=== PATIENT | female | born 1940 | race Asian ===

== ENCOUNTER 2016-11-19 15:29 | Emergency (ER) | payer OTHER ==
[~2016-11-19] VITALS: Ht 154.9 cm; Wt 50.5 kg
[2016-11-19] MEDS ORDERED: ACET-66 PO (15:35)
[2016-11-19] MEDS ORDERED: MULT-248 PO (15:35)
[2016-11-19] MEDS ORDERED: KETOROLAC TROMETHAMINE 60 MG/2 ML VIAL IM ONE (16:00)
[2016-11-19] MEDS ORDERED: HYDROCODONE/ACETAMINOPHEN 5-325 MG TABLET PO ONE (16:00)
[2016-11-19 16:29] LABS: APPEARANCE,URINE CLOUDY (CLEAR); GLUCOSE, URINE (UA) 500 mg/dL (NEGATIVE); KETONES,URINE NEGATIVE (NEGATIVE); OCCULT BLOOD,URINE NEGATIVE (NEGATIVE); PROTEIN,URINE NEGATIVE (NEGATIVE)
[2016-11-19 16:36] LABS: ADD UA MICROSCOPIC YES; LEUKOCYTE ESTERASE ,URINE SMALL (NEGATIVE); RBC,URINE 0-2 /HPF (0-2)
[2016-11-19 16:37] LABS: SQUAMOUS EPITHELIAL CELL,UR Moderate /LPF (None Seen)
[2016-11-19 17:12] LABS: GLUCOSE,POINT OF CARE 255 MG/DL (70-110)
[2016-11-19 17:41] LABS: ANION GAP 9 mmol/L (8-16); CALCIUM, TOTAL 9.1 mg/dL (8.8-10.5); CARBON DIOXIDE 27 mmol/L (22-29); CHLORIDE 94 mmol/L (98-107); CREATININE 0.86 mg/dL (0.60-1.30); GLOMERULAR FILTR. RATE CALC > 60 mL/min (>60); POTASSIUM 4.7 mmol/L (3.5-5.1); SODIUM SERUM 130 mmol/L (136-145); UREA NITROGEN, BLOOD 8 mg/dL (7-18)
[2016-11-19 17:47] LABS: ALANINE AMINOTRANSFERASE 15 U/L (12-78); ALBUMIN 3.5 g/dL (3.4-5.0); ASPARTATE AMINOTRANSFERASE 14 U/L (15-37); BILIRUBIN,TOTAL 0.4 mg/dL (0.1-1.0); TOTAL PROTEIN, SERUM 7.6 g/dL (6.4-8.2)
[2016-11-19 19:19] VITALS: BP 135/85
== END 2016-11-19 19:19 | disposition home or self-care (01) ==
LOC: EMS 15:31
DX: S22.089A Unspecified fracture of T11-T12 vertebra, initial encounter for closed fracture (principal); N39.0 Urinary tract infection, site not specified; M54.5 Low back pain; W18.39XA Other fall on same level, initial encounter; Y93.E8 Activity, other personal hygiene; Y92.89 Other specified places as the place of occurrence of the external cause; Y99.9 Unspecified external cause status
CPT/HCPCS: 36415; 72131; 72100; 80053; 81001; 82962; 87077; 87086; 87186; 96372; 99285; J1885

== ENCOUNTER 2020-10-26 12:20 | Emergency (ER) | payer MEDICARE ==
[~2020-10-26] VITALS: Ht 152.4 cm; Wt 54.5 kg
[~2020-10-26 12:20] MED LIST: ACET-3385 PO; CIPR250T6 PO; METF-960 PO; MULT-248 PO
[2020-10-26 13:40] LABS: BASOPHILS % (AUTO) 1.3 % (0.0-2.0); EOSINOPHILS % (AUTO) 5.5 % (1.0-6.0); HEMATOCRIT 46.1 % (36-46); HEMOGLOBIN 15.2 g/dL (12.0-16.0); LYMPHOCYTES # (AUTO) 3.8 K/uL (1.0-4.8); LYMPHOCYTES % (AUTO) 39.4 % (22.0-44.0); MEAN CORPUSCULAR HEMOGLOBIN 29.5 pg (26.0-34.0); MEAN CORPUSCULAR VOLUME 89 fL (80-100); MONOCYTES # (AUTO) 0.6 K/uL (0.1-1.0); MONOCYTES % (AUTO) 6.4 % (2.0-9.0); NEUTROPHILS # (AUTO) 4.6 K/uL (1.8-7.7); NEUTROPHILS % (AUTO) 47.4 % (40.0-70.0); PLATELET COUNT (AUTO) 290 K/uL (150-450); RED BLOOD CELL COUNT(AUTO) 5.16 MIL/uL (4.00-5.20); RED CELL DISTRIBUTION WIDTH 13.3 % (11.5-14.5)
[2020-10-26 14:11] LABS: ANION GAP 10 mmol/L (8-16); CARBON DIOXIDE 26 mmol/L (22-29); CHLORIDE 91 mmol/L (98-107); GLOMERULAR FILTR. RATE CALC 60 mL/min (>60); GLUCOSE,RANDOM 399 mg/dL (70-110); POTASSIUM 4.2 mmol/L (3.5-5.1); SODIUM SERUM 127 mmol/L (136-145); UREA NITROGEN, BLOOD 28 mg/dL (7-18)
[2020-10-26 14:16] VITALS: BP 151/88
[2020-10-26 14:21] LABS: ALANINE AMINOTRANSFERASE 15 U/L (12-78); ALBUMIN 3.9 g/dL (3.4-5.0); ALKALINE PHOSPHATASE 67 U/L (46-116); ASPARTATE AMINOTRANSFERASE 13 U/L (15-37); BILIRUBIN,TOTAL 0.5 mg/dL (0.1-1.0); TOTAL PROTEIN, SERUM 8.9 g/dL (6.4-8.2)
[2020-10-26 14:39] LABS: ACETONE,BLOOD TRACE (NEGATIVE)
== END 2020-10-26 14:42 | disposition home or self-care (01) ==
LOC: EMS 13:01
DX: E11.65 Type 2 diabetes mellitus with hyperglycemia (principal); Z79.4 Long term (current) use of insulin
CPT/HCPCS: 80053; 82009; 82962; 85025; 99283

== ENCOUNTER 2020-12-01 11:52 | Inpatient (IN) | payer MEDICARE ==
[~2020-12-01] VITALS: Ht 157.5 cm; Wt 59.4 kg
[~2020-12-01 11:52] MED LIST changes: -CIPR250T6 PO; -METF-960 PO
[2020-12-01] MEDS ORDERED: ROCURONIUM BROMIDE 10 MG/ML 5 ML VIAL IVP ONE (12:00)
[2020-12-01] MEDS ORDERED: PROPOFOL 1% 20 ML VIAL IVP ONE (12:00)
[2020-12-01] MEDS ORDERED: KETOROLAC TROMETHAMINE 60 MG/2 ML VIAL IM ONE (12:00)
[2020-12-01] MEDS ORDERED: ONDANSETRON HCL 4 MG/2 ML VIAL IVP ONE ×2 (12:00→12:15)
[2020-12-01] MEDS ORDERED: METOPROLOL TARTRATE 5 MG/5 ML VIAL IVP ONE (12:00)
[2020-12-01] MEDS ORDERED: FentaNYL CITRATE PF 100 MCG/2 ML VIAL IVP ONE (12:00)
[2020-12-01] MEDS ORDERED: DEXAMETHASONE SOD PHOS 4 MG/ML VIAL IVP ONE (12:00)
[2020-12-01] MEDS ORDERED: LIDOCAINE/PF 2% 5 ML VIAL IM ONE (12:00)
[2020-12-01] MEDS ORDERED: MORPHINE SULFATE 4 MG/ML SYRINGE IVP ONE (12:15)
[2020-12-01] MEDS ORDERED: SODIUM CHLORIDE 0.9% 1,000 ML IV ONE (14:00)
[2020-12-01] MEDS ORDERED: ONDANSETRON HCL 4 MG/2 ML VIAL IVP PRN (14:00)
[2020-12-01] MEDS ORDERED: DEXTROSE 50%-WATER 25 GM/50 ML SYRINGE IVP PRN (14:00)
[2020-12-01 14:09] LABS: ANION GAP 15 mmol/L (8-16); BASOPHILS % (AUTO) 0.4 % (0.0-2.0); CALCIUM, TOTAL 8.8 mg/dL (8.8-10.5); CARBON DIOXIDE 21 mmol/L (22-29); CHLORIDE 92 mmol/L (98-107); CREATININE 0.72 mg/dL (0.60-1.30); EOSINOPHILS % (AUTO) 0.1 % (1.0-6.0); GLUCOSE,RANDOM 221 mg/dL (70-110); HEMATOCRIT 38.8 % (36-46); HEMOGLOBIN 12.8 g/dL (12.0-16.0); LYMPHOCYTES # (AUTO) 1.1 K/uL (1.0-4.8); LYMPHOCYTES % (AUTO) 7.9 % (22.0-44.0); MEAN CORPUSCULAR HEMOGLOBIN 29.9 pg (26.0-34.0); MEAN CORPUSCULAR HGB CONC 32.9 G/dL (31.0-37.0); MEAN CORPUSCULAR VOLUME 91 fL (80-100); MONOCYTES # (AUTO) 0.8 K/uL (0.1-1.0); MONOCYTES % (AUTO) 5.5 % (2.0-9.0); PLATELET COUNT (AUTO) 321 K/uL (150-450); POTASSIUM 3.9 mmol/L (3.5-5.1); RED BLOOD CELL COUNT(AUTO) 4.28 MIL/uL (4.00-5.20); RED CELL DISTRIBUTION WIDTH 13.4 % (11.5-14.5); SODIUM SERUM 128 mmol/L (136-145); UREA NITROGEN, BLOOD 22 mg/dL (7-18)
[2020-12-01 14:10] LABS: GLOMERULAR FILTR. RATE CALC > 60 mL/min (>60)
[2020-12-01 14:11] LABS: NEUTROPHILS % (AUTO) 86.1 % (40.0-70.0)
[2020-12-01 14:15] LABS: ALANINE AMINOTRANSFERASE 21 U/L (12-78); ALBUMIN 3.3 g/dL (3.4-5.0); ALKALINE PHOSPHATASE 64 U/L (46-116); ASPARTATE AMINOTRANSFERASE 22 U/L (15-37); BILIRUBIN,TOTAL 0.8 mg/dL (0.1-1.0); TOTAL PROTEIN, SERUM 8.5 g/dL (6.4-8.2)
[2020-12-01 14:20] LABS: INR 0.9 (0.9-1.1); PROTHROMBIN TIME 9.9 SEC (9.4-11.6)
[2020-12-01] MEDS ORDERED: BUPIVACAINE LIPOSOME/PF 1.3%-13.3MG/ML SUSPENSION 20 ML VIAL INJ ONE (14:45)
[2020-12-01 14:46] LABS: COVID AG,FIA SOURCE NASOPHARYNGEAL
[2020-12-01] MEDS ORDERED: SODIUM CHLORIDE 0.9% 500 ML IV ONE (15:00)
[2020-12-01 17:44] VITALS: BP 138/88
[2020-12-01] MEDS ORDERED: SODIUM CHLORIDE 0.9% 1,000 ML ONE (19:22)
[2020-12-01] MEDS ORDERED: HYDROmorphone 2 MG/ML VIAL IVP PRN (19:30)
[2020-12-01] MEDS ORDERED: MEPERIDINE-PF 25 MG/ML VIAL IVP PRN (19:30)
[2020-12-01] MEDS ORDERED: FentaNYL CITRATE PF 100 MCG/2 ML VIAL IVP PRN (19:30)
[2020-12-01] MEDS ORDERED: BUPIVACAINE HCL/PF 0.25% 30 ML VIAL ONE (19:38)
[2020-12-01] MEDS ORDERED: SUGAMMADEX SODIUM 200 MG/2 ML VIAL IVP ONE (20:47)
[2020-12-01 22:00] VITALS: BP 130/70
[2020-12-01] MEDS: DOCUSATE SODIUM 100 MG CAPSULE PO SCH (23:05)
[2020-12-01] MEDS: CeFAZolin 1 GM/DEXTROSE 50 ML IV SCH (23:05)
[2020-12-01] MEDS: OXYGEN THERAPY IH SCH (23:05)
[2020-12-01] MEDS: INSULIN LISPRO 100 UNITS/ML SQ PRN (23:12)
[2020-12-01 23:46] VITALS: BP 126/64
[2020-12-01 23:57] LABS: GLUCOMETER DEV NAME(LOC) 6N.1; GLUCOSE,POINT OF CARE 181 MG/DL (70-110)
[2020-12-02] MEDS: ACETAMINOPHEN 325 MG TABLET PO PRN ×2 (02:37→16:44)
[2020-12-02 02:56] LABS: GLUCOMETER DEV NAME(LOC) 5N.1C; GLUCOSE,POINT OF CARE 255 MG/DL (70-110)
[2020-12-02 04:09] VITALS: BP 110/50
[2020-12-02] MEDS: INSULIN LISPRO 100 UNITS/ML SQ PRN ×4 (05:58→21:26)
[2020-12-02] MEDS: CeFAZolin 1 GM/DEXTROSE 50 ML IV SCH ×2 (05:59→14:17)
[2020-12-02 06:17] LABS: GLUCOMETER DEV NAME(LOC) 5N.3; GLUCOSE,POINT OF CARE 285 MG/DL (70-110)
[2020-12-02 06:30] LABS: BASOPHILS % (AUTO) 0.1 % (0.0-2.0); EOSINOPHILS % (AUTO) 0 % (1.0-6.0); HEMATOCRIT 31.4 % (36-46); HEMOGLOBIN 10.5 g/dL (12.0-16.0); LYMPHOCYTES # (AUTO) 1.2 K/uL (1.0-4.8); LYMPHOCYTES % (AUTO) 8.9 % (22.0-44.0); MEAN CORPUSCULAR HEMOGLOBIN 30.3 pg (26.0-34.0); MEAN CORPUSCULAR HGB CONC 33.4 G/dL (31.0-37.0); MEAN CORPUSCULAR VOLUME 91 fL (80-100); MONOCYTES # (AUTO) 0.6 K/uL (0.1-1.0); PLATELET COUNT (AUTO) 249 K/uL (150-450); RED BLOOD CELL COUNT(AUTO) 3.45 MIL/uL (4.00-5.20); RED CELL DISTRIBUTION WIDTH 13.8 % (11.5-14.5)
[2020-12-02 06:46] LABS: ANION GAP 12 mmol/L (8-16); CALCIUM, TOTAL 7.7 mg/dL (8.8-10.5); CARBON DIOXIDE 22 mmol/L (22-29); CHLORIDE 96 mmol/L (98-107); CREATININE 0.77 mg/dL (0.60-1.30); GLUCOSE,RANDOM 273 mg/dL (70-110); POTASSIUM 4.7 mmol/L (3.5-5.1); SODIUM SERUM 130 mmol/L (136-145); UREA NITROGEN, BLOOD 21 mg/dL (7-18)
[2020-12-02 06:51] LABS: GLOMERULAR FILTR. RATE CALC > 60 mL/min (>60)
[2020-12-02 07:54] VITALS: BP 101/60
[2020-12-02] MEDS: OXYGEN THERAPY IH SCH ×2 (08:00→20:00)
[2020-12-02] MEDS: FAMOTIDINE 20 MG TABLET PO SCH (09:09)
[2020-12-02] MEDS: DOCUSATE SODIUM 100 MG CAPSULE PO SCH ×2 (09:09→21:17)
[2020-12-02] MEDS: CALCIUM CIT/VITAMIN D3 200 MG-250 UNITS TABLET PO SCH ×2 (11:10→21:17)
[2020-12-02 12:10] VITALS: BP 108/55
[2020-12-02] MEDS ORDERED: SODIUM CHLORIDE 0.9% 500 ML IV ONE (14:19)
[2020-12-02 14:25] LABS: APPEARANCE,URINE TURBID (CLEAR); BILIRUBIN,URINE NEGATIVE (NEGATIVE); GLUCOSE, URINE (UA) 500 mg/dL (NEGATIVE); KETONES,URINE NEGATIVE (NEGATIVE); LEUKOCYTE ESTERASE ,URINE LARGE (NEGATIVE); NITRATE,URINE POSITIVE (NEGATIVE); OCCULT BLOOD,URINE LARGE (NEGATIVE); PROTEIN,URINE POS 1+ (NEGATIVE); UROBILINOGEN,URINE 0.2 mg/dL (<=1.0)
[2020-12-02 14:36] LABS: BACTERIA,URINE Many /HPF (None Seen); SQUAMOUS EPITHELIAL CELL,UR Rare /LPF (None Seen); WBC,URINE >100 /HPF (0-5)
[2020-12-02 15:24] VITALS: BP 120/59
[2020-12-02] MEDS ORDERED: *CLINICAL-RX DOSING [ENTER DRUG IN COMMENTS] CLINICAL ONE (15:30)
[2020-12-02] MEDS: MetFORMIN HCL 500 MG TABLET PO SCH (17:52)
[2020-12-02] MEDS: MORPHINE SULFATE 2 MG/ML SYRINGE IVP PRN ×2 (18:12→23:48)
[2020-12-02 19:51] VITALS: BP 120/60
[2020-12-02] MEDS: ENOXAPARIN SODIUM 30 MG/0.3 ML PF SYRINGE SQ SCH (21:19)
[2020-12-02 22:19] LABS: GLUCOMETER DEV NAME(LOC) 5N.1C; GLUCOSE,POINT OF CARE 176 MG/DL (70-110)
[2020-12-02 22:19] LABS: GLUCOMETER DEV NAME(LOC) 5N.1C; GLUCOSE,POINT OF CARE 201 MG/DL (70-110)
[2020-12-02 23:42] VITALS: BP 126/55
[2020-12-03] VITALS (7 sets, daily range): BP systolic 129–144; BP diastolic 60–91
[2020-12-03] MEDS: CeFAZolin 1 GM/DEXTROSE 50 ML IV SCH ×2 (01:23→13:40)
[2020-12-03 05:14] LABS: GLUCOMETER DEV NAME(LOC) 5N.3; GLUCOSE,POINT OF CARE 222 MG/DL (70-110)
[2020-12-03] MEDS: MORPHINE SULFATE 2 MG/ML SYRINGE IVP PRN ×2 (06:03→09:34)
[2020-12-03] MEDS: INSULIN LISPRO 100 UNITS/ML SQ PRN ×4 (06:13→20:23)
[2020-12-03 06:42] LABS: GLUCOMETER DEV NAME(LOC) 5N.1C; GLUCOSE,POINT OF CARE 210 MG/DL (70-110)
[2020-12-03] MEDS: OXYGEN THERAPY IH SCH ×2 (08:00→20:56)
[2020-12-03] MEDS: FAMOTIDINE 20 MG TABLET PO SCH (08:37)
[2020-12-03] MEDS: DOCUSATE SODIUM 100 MG CAPSULE PO SCH ×2 (08:37→20:21)
[2020-12-03] MEDS: MetFORMIN HCL 500 MG TABLET PO SCH ×2 (08:37→18:10)
[2020-12-03] MEDS: ENOXAPARIN SODIUM 30 MG/0.3 ML PF SYRINGE SQ SCH (08:37)
[2020-12-03] MEDS: CALCIUM CIT/VITAMIN D3 200 MG-250 UNITS TABLET PO SCH ×2 (08:39→20:21)
[2020-12-03 12:00] LABS: GLUCOMETER DEV NAME(LOC) 5N.1C; GLUCOSE,POINT OF CARE 211 MG/DL (70-110)
[2020-12-03] MEDS: BENZONATATE 100 MG CAPSULE PO PRN (13:58)
[2020-12-03 17:44] LABS: GLUCOMETER DEV NAME(LOC) 5N.3; GLUCOSE,POINT OF CARE 203 MG/DL (70-110)
[2020-12-04] VITALS (7 sets, daily range): BP systolic 112–146; BP diastolic 58–78
[2020-12-04] MEDS: CeFAZolin 1 GM/DEXTROSE 50 ML IV SCH ×2 (01:22→13:26)
[2020-12-04] MEDS: INSULIN LISPRO 100 UNITS/ML SQ PRN ×4 (05:56→21:34)
[2020-12-04] MEDS: HYDROCODONE/ACETAMINOPHEN 5-325 MG TABLET PO PRN ×3 (05:57→21:20)
[2020-12-04] MEDS: BENZONATATE 100 MG CAPSULE PO PRN ×2 (06:03→14:53)
[2020-12-04] MEDS: CALCIUM CIT/VITAMIN D3 200 MG-250 UNITS TABLET PO SCH ×2 (09:36→21:20)
[2020-12-04] MEDS: MetFORMIN HCL 500 MG TABLET PO SCH (09:37)
[2020-12-04] MEDS: DOCUSATE SODIUM 100 MG CAPSULE PO SCH ×2 (09:37→21:20)
[2020-12-04] MEDS: FAMOTIDINE 20 MG TABLET PO SCH (09:37)
[2020-12-04] MEDS: OXYGEN THERAPY IH SCH ×2 (09:37→21:20)
[2020-12-04] MEDS: ENOXAPARIN SODIUM 30 MG/0.3 ML PF SYRINGE SQ SCH (09:39)
[2020-12-04] MEDS: ACETAMINOPHEN 325 MG TABLET PO PRN (10:34)
[2020-12-04 11:29] LABS: GLUCOMETER DEV NAME(LOC) 5N.1C; GLUCOSE,POINT OF CARE 219 MG/DL (70-110)
[2020-12-04 12:25] LABS: GLUCOMETER DEV NAME(LOC) 5S.1; GLUCOSE,POINT OF CARE 202 MG/DL (70-110)
[2020-12-04 12:30] LABS: GLUCOMETER DEV NAME(LOC) 5N.3; GLUCOSE,POINT OF CARE 209 MG/DL (70-110)
[2020-12-04] MEDS ORDERED: SODIUM CHLORIDE 0.9% 250 ML IV ONE (13:23)
[2020-12-04] MEDS: MetFORMIN HCL 850 MG TABLET PO SCH (17:57)
[2020-12-04] MEDS: MORPHINE SULFATE 2 MG/ML SYRINGE IVP PRN (18:19)
[2020-12-04 18:22] LABS: GLUCOMETER DEV NAME(LOC) 5S.1; GLUCOSE,POINT OF CARE 167 MG/DL (70-110)
[2020-12-05] MEDS: CeFAZolin 1 GM/DEXTROSE 50 ML IV SCH ×2 (02:10→14:04)
[2020-12-05] MEDS: MORPHINE SULFATE 2 MG/ML SYRINGE IVP PRN ×3 (02:21→18:05)
[2020-12-05 04:40] VITALS: BP 121/70
[2020-12-05] MEDS: HYDROCODONE/ACETAMINOPHEN 5-325 MG TABLET PO PRN ×3 (05:59→20:17)
[2020-12-05] MEDS: INSULIN LISPRO 100 UNITS/ML SQ PRN ×3 (06:16→17:26)
[2020-12-05 06:48] LABS: BASOPHILS % (AUTO) 1.4 % (0.0-2.0); EOSINOPHILS % (AUTO) 11.5 % (1.0-6.0); HEMATOCRIT 27.9 % (36-46); HEMOGLOBIN 9.4 g/dL (12.0-16.0); LYMPHOCYTES # (AUTO) 2.3 K/uL (1.0-4.8); LYMPHOCYTES % (AUTO) 21.8 % (22.0-44.0); MEAN CORPUSCULAR HEMOGLOBIN 30.8 pg (26.0-34.0); MEAN CORPUSCULAR HGB CONC 33.9 G/dL (31.0-37.0); MEAN CORPUSCULAR VOLUME 91 fL (80-100); MONOCYTES % (AUTO) 9.2 % (2.0-9.0); NEUTROPHILS # (AUTO) 5.9 K/uL (1.8-7.7); NEUTROPHILS % (AUTO) 56.1 % (40.0-70.0); PLATELET COUNT (AUTO) 270 K/uL (150-450); RED BLOOD CELL COUNT(AUTO) 3.07 MIL/uL (4.00-5.20); RED CELL DISTRIBUTION WIDTH 13.8 % (11.5-14.5)
[2020-12-05 06:59] LABS: ANION GAP 8 mmol/L (8-16); CALCIUM, TOTAL 8.5 mg/dL (8.8-10.5); CARBON DIOXIDE 26 mmol/L (22-29); CHLORIDE 94 mmol/L (98-107); CREATININE 0.45 mg/dL (0.60-1.30); GLUCOSE,RANDOM 159 mg/dL (70-110); POTASSIUM 4.4 mmol/L (3.5-5.1); SODIUM SERUM 128 mmol/L (136-145); UREA NITROGEN, BLOOD 10 mg/dL (7-18)
[2020-12-05 07:03] LABS: GLOMERULAR FILTR. RATE CALC > 60 mL/min (>60)
[2020-12-05 07:14] VITALS: BP 100/53
[2020-12-05] MEDS: OXYGEN THERAPY IH SCH ×2 (09:18→20:23)
[2020-12-05] MEDS: DOCUSATE SODIUM 100 MG CAPSULE PO SCH ×2 (09:19→20:17)
[2020-12-05] MEDS: MetFORMIN HCL 850 MG TABLET PO SCH ×2 (09:19→18:01)
[2020-12-05] MEDS: ENOXAPARIN SODIUM 30 MG/0.3 ML PF SYRINGE SQ SCH (09:19)
[2020-12-05] MEDS: FAMOTIDINE 20 MG TABLET PO SCH (09:19)
[2020-12-05] MEDS: CALCIUM CIT/VITAMIN D3 200 MG-250 UNITS TABLET PO SCH ×2 (09:19→20:17)
[2020-12-05 11:13] VITALS: BP 114/66
[2020-12-05 15:19] VITALS: BP 122/62
[2020-12-05 16:01] LABS: APPEARANCE,URINE CLEAR (CLEAR); BILIRUBIN,URINE NEGATIVE (NEGATIVE); GLUCOSE, URINE (UA) NEGATIVE (NEGATIVE); KETONES,URINE NEGATIVE (NEGATIVE); LEUKOCYTE ESTERASE ,URINE NEGATIVE (NEGATIVE); NITRATE,URINE NEGATIVE (NEGATIVE); OCCULT BLOOD,URINE MODERATE (NEGATIVE); PH,URINE 5.5 (5.0-8.0); PROTEIN,URINE NEGATIVE (NEGATIVE); UROBILINOGEN,URINE 0.2 mg/dL (<=1.0)
[2020-12-05 16:35] LABS: BACTERIA,URINE Rare /HPF (None Seen); SQUAMOUS EPITHELIAL CELL,UR Few /LPF (None Seen); WBC,URINE 0-2 /HPF (0-5); YEAST,URINE Moderate /HPF (None Seen)
[2020-12-05 19:53] VITALS: BP 133/60
[2020-12-06 00:13] VITALS: BP 127/59
[2020-12-06] MEDS: CeFAZolin 1 GM/DEXTROSE 50 ML IV SCH ×2 (02:00→14:47)
[2020-12-06 05:36] LABS: GLUCOMETER DEV NAME(LOC) 5N.1C; GLUCOSE,POINT OF CARE 138 MG/DL (70-110)
[2020-12-06 05:36] LABS: GLUCOMETER DEV NAME(LOC) 5N.1C; GLUCOSE,POINT OF CARE 155 MG/DL (70-110)
[2020-12-06 05:37] VITALS: BP 121/65
[2020-12-06] MEDS: HYDROCODONE/ACETAMINOPHEN 5-325 MG TABLET PO PRN ×2 (05:50→12:14)
[2020-12-06] MEDS: INSULIN LISPRO 100 UNITS/ML SQ PRN ×2 (05:55→12:15)
[2020-12-06 07:55] VITALS: BP 105/54
[2020-12-06 08:32] LABS: GLUCOMETER DEV NAME(LOC) 5N.3; GLUCOSE,POINT OF CARE 177 MG/DL (70-110)
[2020-12-06 08:32] LABS: GLUCOMETER DEV NAME(LOC) 5N.3; GLUCOSE,POINT OF CARE 180 MG/DL (70-110)
[2020-12-06 08:32] LABS: GLUCOMETER DEV NAME(LOC) 5N.3; GLUCOSE,POINT OF CARE 166 MG/DL (70-110)
[2020-12-06 08:45] LABS: GLUCOMETER DEV NAME(LOC) 5S.1; GLUCOSE,POINT OF CARE 160 MG/DL (70-110)
[2020-12-06] MEDS: FAMOTIDINE 20 MG TABLET PO SCH (09:29)
[2020-12-06] MEDS: ENOXAPARIN SODIUM 30 MG/0.3 ML PF SYRINGE SQ SCH (09:29)
[2020-12-06] MEDS: MetFORMIN HCL 850 MG TABLET PO SCH (09:29)
[2020-12-06] MEDS: DOCUSATE SODIUM 100 MG CAPSULE PO SCH (09:29)
[2020-12-06] MEDS: CALCIUM CIT/VITAMIN D3 200 MG-250 UNITS TABLET PO SCH (09:29)
[2020-12-06] MEDS: OXYGEN THERAPY IH SCH (09:34)
[2020-12-06] MEDS: BENZONATATE 100 MG CAPSULE PO PRN (11:05)
[2020-12-06] MEDS ORDERED: CALC-884 PO (11:11)
[2020-12-06] MEDS ORDERED: ENOX30DI5 SQ (11:12)
[2020-12-06] MEDS ORDERED: DOCU-270 PO (11:12)
[2020-12-06] MEDS ORDERED: FAMO20 PO (11:13)
[2020-12-06] MEDS ORDERED: METF-961 PO (11:13)
[2020-12-06] MEDS ORDERED: FLUCONAZOLE 150 MG TABLET PO ONE (11:15)
[2020-12-06] MEDS ORDERED: ACET-2247 PO (11:22)
[2020-12-06] MEDS ORDERED: BENZ-70 PO (11:23)
[2020-12-06] MEDS ORDERED: HYDR-4723 PO (11:24)
[2020-12-06] MEDS ORDERED: INSU100V SQ (11:25)
[2020-12-06 11:31] VITALS: BP 131/61
[2020-12-06 12:14] LABS: GLUCOMETER DEV NAME(LOC) 5N.1C; GLUCOSE,POINT OF CARE 168 MG/DL (70-110)
[2020-12-06 15:20] VITALS: BP 131/63
== END 2020-12-06 16:30 | DRG 480 ==
LOC: EMS 11:56 → 6N 15:02 → 5S 22:10
PROVIDERS: ADMIT Internal Medicine; ATTEND Internal Medicine
PROC: 0QS604Z Reposition Right Upper Femur with Internal Fixation Device, Open Approach (ICD-10-PCS; principal; 2020-12-01 20:30)
DX: M84.451A Pathological fracture, right femur, initial encounter for fracture (principal); E43 Unspecified severe protein-calorie malnutrition; N39.0 Urinary tract infection, site not specified; E87.1 Hypo-osmolality and hyponatremia; Z20.822 Contact with and (suspected) exposure to COVID-19; F03.90 Unspecified dementia, unspecified severity, without behavioral disturbance, psychotic disturbance, mood disturbance, and anxiety; E11.9 Type 2 diabetes mellitus without complications; J84.10 Pulmonary fibrosis, unspecified; M19.90 Unspecified osteoarthritis, unspecified site; R62.7 Adult failure to thrive; Z68.24 Body mass index [BMI] 24.0-24.9, adult; W18.39XA Other fall on same level, initial encounter; Y93.89 Activity, other specified; Y92.098 Other place in other non-institutional residence as the place of occurrence of the external cause; Y99.8 Other external cause status
CPT/HCPCS: 51702; 71045; 73502; 80048; 80053; 81001; 82962; 85025; 85610; 85730; 87081; 87086; 93005; 97116; 97163; 97530; 99285; A9575; C9290; G0238; J0690; J1100; J1650; J1885; J2270; J2405; J2704; J3010; J3490; J7030; J7040; J7050; 36415-L1; 36415-TC; C1716; Z7610

== ENCOUNTER 2022-05-15 11:39 | Inpatient (IN) | payer MEDICARE ==
[~2022-05-15] VITALS: Ht 157.5 cm; Wt 59.1 kg
[~2022-05-15 11:39] MED LIST changes: +ACET-2247 PO; -ACET-3385 PO; +BENZ-70 PO; +CALC-884 PO; +DOCU-385 PO; +ENOX30SY19 SQ; +FAMO20 PO; +HYDR-4723 PO; +INSU100V SQ; +METF-1185 PO; -MULT-248 PO
[2022-05-15] MEDS ORDERED: SODIUM CHLORIDE 0.9% 1,000 ML IV ONE ×2 (14:30→16:45)
[2022-05-15 14:51] LABS: COVID AG,FIA SOURCE NASOPHARYNGEAL
[2022-05-15 14:52] LABS: EOSINOPHILS % (AUTO) 4.2 % (1.0-6.0); HEMATOCRIT 38.8 % (36-46); LYMPHOCYTES # (AUTO) 1.7 K/uL (1.0-4.8); LYMPHOCYTES % (AUTO) 20.4 % (22.0-44.0); MEAN CORPUSCULAR HEMOGLOBIN 30.7 pg (26.0-34.0); MEAN CORPUSCULAR HGB CONC 33.5 G/dL (31.0-37.0); MEAN CORPUSCULAR VOLUME 92 fL (80-100); MONOCYTES # (AUTO) 0.7 K/uL (0.1-1.0); MONOCYTES % (AUTO) 8.6 % (2.0-9.0); NEUTROPHILS # (AUTO) 5.4 K/uL (1.8-7.7); NEUTROPHILS % (AUTO) 65.8 % (40.0-70.0); PLATELET COUNT (AUTO) 356 K/uL (150-450); RED BLOOD CELL COUNT(AUTO) 4.23 MIL/uL (4.00-5.20); RED CELL DISTRIBUTION WIDTH 13.6 % (11.5-14.5)
[2022-05-15 15:06] LABS: ANION GAP 8 mmol/L (8-16); CALCIUM, TOTAL 8.8 mg/dL (8.8-10.5); CARBON DIOXIDE 28 mmol/L (22-29); CHLORIDE 96 mmol/L (98-107); CREATININE 0.83 mg/dL (0.60-1.30); GLOMERULAR FILTR. RATE CALC > 60 mL/min (>60); GLUCOSE,RANDOM 120 mg/dL (70-110); POTASSIUM 4.1 mmol/L (3.5-5.1); SODIUM SERUM 132 mmol/L (136-145); UREA NITROGEN, BLOOD 25 mg/dL (7-18)
[2022-05-15 15:11] LABS: ALANINE AMINOTRANSFERASE 9 U/L (12-78); ALBUMIN 3.1 g/dL (3.4-5.0); ALKALINE PHOSPHATASE 79 U/L (46-116); ASPARTATE AMINOTRANSFERASE 16 U/L (15-37); BILIRUBIN,TOTAL 0.6 mg/dL (0.1-1.0); CREATINE KINASE, TOTAL ONLY 23 U/L (26-192); TOTAL PROTEIN, SERUM 8.4 g/dL (6.4-8.2)
[2022-05-15 15:13] LABS: B-TYPE NATRIURETIC PEPTIDE 142 pg/mL (0-100)
[2022-05-15 15:40] LABS: APPEARANCE,URINE HAZY (CLEAR); BILIRUBIN,URINE NEGATIVE (NEGATIVE); GLUCOSE, URINE (UA) NEGATIVE (NEGATIVE); LEUKOCYTE ESTERASE ,URINE LARGE (NEGATIVE); NITRATE,URINE POSITIVE (NEGATIVE); OCCULT BLOOD,URINE LARGE (NEGATIVE); PROTEIN,URINE 300-600,SEE CONFIRM mg/dL (NEGATIVE); SPECIFIC GRAVITIY, URINE 1.013 (1.003-1.030); UROBILINOGEN,URINE <=1.0 mg/dL (<=1.0)
[2022-05-15 16:00] LABS: SULFOSALICYLIC ACID,URINE 4+ (Negative)
[2022-05-15 16:01] LABS: BACTERIA,URINE Many /HPF (None Seen)
[2022-05-15 16:02] LABS: TRIPLE PHOSPHATE CRYSTAL,UR Moderate /LPF (None Seen)
[2022-05-15] MEDS ORDERED: CefTRIAXone 1 GM/DEXTROSE 50 ML IV ONE (16:30)
[2022-05-15] MEDS ORDERED: DEXTROSE 50%-WATER 25 GM/50 ML SYRINGE IVP PRN (16:45)
[2022-05-15] MEDS ORDERED: BISACODYL 10 MG RECTAL RECTAL SUPPOSITORY PR PRN (16:45)
[2022-05-15] MEDS ORDERED: ACETAMINOPHEN 325 MG TABLET PO PRN (16:45)
[2022-05-15] MEDS ORDERED: MAGNESIUM HYDROXIDE SUSPENSION 30 ML UDCUP PO PRN (16:45)
[2022-05-15] MEDS ORDERED: ONDANSETRON HCL 4 MG/2 ML VIAL IVP PRN (16:45)
[2022-05-15 21:48] VITALS: BP 199/90
[2022-05-15] MEDS: CALCIUM CIT/VITAMIN D3 200 MG-250 UNITS[6.25MCG] TABLET PO SCH (22:00)
[2022-05-15] MEDS: DOCUSATE SODIUM 100 MG CAPSULE PO SCH (22:00)
[2022-05-15] MEDS ORDERED: CloNIDine HCL 0.1 MG TABLET PO PRN (22:15)
[2022-05-15 22:36] LABS: GLUCOMETER DEV NAME(LOC) 6N.2B; GLUCOSE,POINT OF CARE 111 MG/DL (70-110)
[2022-05-15] MEDS: HEPARIN SODIUM,PORCINE 5,000 UNITS/ML VIAL SQ SCH (23:06)
[2022-05-16 05:16] VITALS: BP 148/70
[2022-05-16 06:31] LABS: GLUCOMETER DEV NAME(LOC) 6N.2B; GLUCOSE,POINT OF CARE 125 MG/DL (70-110)
[2022-05-16 08:00] VITALS: BP 149/69
[2022-05-16] MEDS: DOCUSATE SODIUM 100 MG CAPSULE PO SCH ×2 (08:47→20:32)
[2022-05-16] MEDS: MULTIVITAMINS WITH MINERALS, THERAPEUTIC TABLET PO SCH (08:48)
[2022-05-16] MEDS: HEPARIN SODIUM,PORCINE 5,000 UNITS/ML VIAL SQ SCH ×2 (08:48→20:32)
[2022-05-16] MEDS: CALCIUM CIT/VITAMIN D3 200 MG-250 UNITS[6.25MCG] TABLET PO SCH ×2 (08:48→20:28)
[2022-05-16] MEDS: FAMOTIDINE 20 MG TABLET PO SCH (08:48)
[2022-05-16] MEDS: SODIUM CHLORIDE 0.9% 1,000 ML IV SCH (15:10)
[2022-05-16] MEDS: CefTRIAXone 1 GM/DEXTROSE 50 ML IV SCH (15:10)
[2022-05-16 16:49] VITALS: BP 142/71
[2022-05-16 20:00] VITALS: BP 156/93
[2022-05-16 22:07] LABS: GLUCOMETER DEV NAME(LOC) 6N.2B; GLUCOSE,POINT OF CARE 175 MG/DL (70-110)
[2022-05-16 22:07] LABS: GLUCOMETER DEV NAME(LOC) 6N.2B; GLUCOSE,POINT OF CARE 132 MG/DL (70-110)
[2022-05-16 23:46] LABS: GLUCOMETER DEV NAME(LOC) 6N.1; GLUCOSE,POINT OF CARE 106 MG/DL (70-110)
[2022-05-17 04:00] VITALS: BP 158/79
[2022-05-17 07:16] LABS: MAGNESIUM 1.7 mg/dL (1.80-2.40); PHOSPHORUS 3.5 mg/dL (2.5-4.9)
[2022-05-17 08:16] VITALS: BP 153/68
[2022-05-17] MEDS: CALCIUM CIT/VITAMIN D3 200 MG-250 UNITS[6.25MCG] TABLET PO SCH (08:20)
[2022-05-17] MEDS: HEPARIN SODIUM,PORCINE 5,000 UNITS/ML VIAL SQ SCH (08:21)
[2022-05-17] MEDS: SODIUM CHLORIDE 0.9% 1,000 ML IV SCH (08:24)
[2022-05-17] MEDS ORDERED: AmLODIPine BESYLATE 5 MG TABLET PO SCH (10:30)
[2022-05-17] MEDS: DOCUSATE SODIUM 100 MG CAPSULE PO SCH (10:56)
[2022-05-17] MEDS: FAMOTIDINE 20 MG TABLET PO SCH (10:59)
[2022-05-17] MEDS: MULTIVITAMINS WITH MINERALS, THERAPEUTIC TABLET PO SCH (10:59)
[2022-05-17] MEDS: INSULIN LISPRO 100 UNITS/ML SQ PRN ×2 (11:43→17:14)
[2022-05-17 12:02] LABS: GLUCOMETER DEV NAME(LOC) 6N.2B; GLUCOSE,POINT OF CARE 116 MG/DL (70-110)
[2022-05-17] MEDS ORDERED: MAGNESIUM OXIDE 400 MG TABLET PO ONE (13:45)
[2022-05-17 14:52] LABS: GLUCOMETER DEV NAME(LOC) 6N.1; GLUCOSE,POINT OF CARE 130 MG/DL (70-110)
[2022-05-17] MEDS: CefTRIAXone 1 GM/DEXTROSE 50 ML IV SCH (15:14)
[2022-05-17 16:01] VITALS: BP 142/72
[2022-05-17 20:01] LABS: GLUCOMETER DEV NAME(LOC) 6N.2B; GLUCOSE,POINT OF CARE 145 MG/DL (70-110)
== END 2022-05-17 18:25 | DRG 91 ==
LOC: EMS 11:44 → AHU 16:40 → 6S 20:34
PROVIDERS: ADMIT Internal Medicine; ATTEND Internal Medicine
DX: G92.9 Unspecified toxic encephalopathy (principal); E43 Unspecified severe protein-calorie malnutrition; M48.54XA Collapsed vertebra, not elsewhere classified, thoracic region, initial encounter for fracture; N39.0 Urinary tract infection, site not specified; E87.1 Hypo-osmolality and hyponatremia; Q78.2 Osteopetrosis; J84.10 Pulmonary fibrosis, unspecified; E11.9 Type 2 diabetes mellitus without complications; F03.90 Unspecified dementia, unspecified severity, without behavioral disturbance, psychotic disturbance, mood disturbance, and anxiety; R62.7 Adult failure to thrive; Z20.822 Contact with and (suspected) exposure to COVID-19; R79.89 Other specified abnormal findings of blood chemistry; E86.9 Volume depletion, unspecified; I10 Essential (primary) hypertension; Z68.23 Body mass index [BMI] 23.0-23.9, adult; Z79.899 Other long term (current) drug therapy
CPT/HCPCS: 51701; 70450; 71045; 72100; 80053; 81001; 81002; 82550; 82962; 83735; 83880; 84100; 84484; 85025; 87086; 87186; 92610; 93005; 97162; 97530; 99285; J0696; J1644; J2405; J7030; Q9967; 36415-L1; 36415-TC

== ENCOUNTER 2022-06-16 23:23 | Inpatient (IN) | payer MEDICARE ==
[~2022-06-16] VITALS: Ht 154.9 cm; Wt 51.1 kg
[~2022-06-16 23:23] MED LIST changes: +BENZ-227 PO; -BENZ-70 PO
[2022-06-16] MEDS ORDERED: 0.9% SODIUM CHLORIDE 10 ML SYRINGE IVP PRN (23:30)
[2022-06-16] MEDS ORDERED: NITROGLYCERIN 2% (1 GM=INCH) OINTMENT PACKET TP ONE (23:30)
[2022-06-16] MEDS ORDERED: ALBUTEROL SULFATE 2.5 MG/0.5 ML NEB SOLUTION NEB ONE (23:45)
[2022-06-16] MEDS ORDERED: 0.9% SODIUM CHLORIDE 5 ML NEB SOLUTION NEB ONE (23:47)
[2022-06-17 00:18] LABS: COVID AG,FIA SOURCE NASAL SWAB
[2022-06-17] MEDS ORDERED: FUROSEMIDE 20 MG/2 ML VIAL IVP ONE (00:30)
[2022-06-17 00:36] LABS: BASOPHILS % (AUTO) 0.4 % (0.0-2.0); HEMATOCRIT 34.2 % (36-46); HEMOGLOBIN 11.6 g/dL (12.0-16.0); LYMPHOCYTES # (AUTO) 0.8 K/uL (1.0-4.8); LYMPHOCYTES % (AUTO) 6.2 % (22.0-44.0); MEAN CORPUSCULAR HEMOGLOBIN 31.7 pg (26.0-34.0); MEAN CORPUSCULAR HGB CONC 33.8 G/dL (31.0-37.0); MEAN CORPUSCULAR VOLUME 94 fL (80-100); MONOCYTES # (AUTO) 0.7 K/uL (0.1-1.0); MONOCYTES % (AUTO) 5.6 % (2.0-9.0); NEUTROPHILS # (AUTO) 10.9 K/uL (1.8-7.7); PLATELET COUNT (AUTO) 192 K/uL (150-450); RED BLOOD CELL COUNT(AUTO) 3.64 MIL/uL (4.00-5.20); RED CELL DISTRIBUTION WIDTH 14.4 % (11.5-14.5)
[2022-06-17 00:37] LABS: NEUTROPHILS % (AUTO) 86.8 % (40.0-70.0)
[2022-06-17 00:42] LABS: INFLUENZA TYPE A NEGATIVE FOR TYPE A (NEGATIVE); INFLUENZA TYPE B NEGATIVE FOR TYPE B (NEGATIVE)
[2022-06-17 00:46] LABS: ALANINE AMINOTRANSFERASE 15 U/L (12-78); ALKALINE PHOSPHATASE 66 U/L (46-116); ANION GAP 10 mmol/L (8-16); ASPARTATE AMINOTRANSFERASE 19 U/L (15-37); BILIRUBIN,TOTAL 0.7 mg/dL (0.1-1.0); CALCIUM, TOTAL 9.1 mg/dL (8.8-10.5); CARBON DIOXIDE 26 mmol/L (22-29); CHLORIDE 89 mmol/L (98-107); CREATININE 0.75 mg/dL (0.60-1.30); GLOMERULAR FILTR. RATE CALC > 60 mL/min (>60); GLUCOSE,RANDOM 111 mg/dL (70-110); POTASSIUM 3.9 mmol/L (3.5-5.1); SODIUM SERUM 125 mmol/L (136-145); TOTAL PROTEIN, SERUM 7.9 g/dL (6.4-8.2); UREA NITROGEN, BLOOD 19 mg/dL (7-18)
[2022-06-17 00:49] LABS: CREATINE KINASE, TOTAL ONLY 27 U/L (26-192)
[2022-06-17 00:52] LABS: LACTIC ACID 2.8 mmol/L (0.4-2.0)
[2022-06-17] MEDS ORDERED: CefTRIAXone 1 GM/DEXTROSE 50 ML IV ONE (01:00)
[2022-06-17 01:14] LABS: B-TYPE NATRIURETIC PEPTIDE 349 pg/mL (0-100)
[2022-06-17] MEDS ORDERED: ACETAMINOPHEN 650 MG/ISO-OSM 65 ML IV ONE (01:30)
[2022-06-17 01:45] LABS: APPEARANCE,URINE CLEAR (CLEAR); BILIRUBIN,URINE NEGATIVE (NEGATIVE); GLUCOSE, URINE (UA) NEGATIVE (NEGATIVE); KETONES,URINE NEGATIVE (NEGATIVE); LEUKOCYTE ESTERASE ,URINE SMALL (NEGATIVE); NITRATE,URINE NEGATIVE (NEGATIVE); OCCULT BLOOD,URINE TRACE (NEGATIVE); PROTEIN,URINE 100-200,SEE CONFIRM mg/dL (NEGATIVE); SPECIFIC GRAVITIY, URINE 1.013 (1.003-1.030); UROBILINOGEN,URINE <=1.0 mg/dL (<=1.0)
[2022-06-17 01:58] LABS: BACTERIA,URINE None Seen /HPF (None Seen); RBC,URINE 0-2 /HPF (0-2); SQUAMOUS EPITHELIAL CELL,UR None Seen /LPF (None Seen); SULFOSALICYLIC ACID,URINE 1+ (Negative)
[2022-06-17] MEDS ORDERED: ALBUTEROL SULFATE 2.5 MG/0.5 ML NEB SOLUTION NEB PRN ×2 (02:15→06:15)
[2022-06-17] MEDS ORDERED: ONDANSETRON HCL 4 MG/2 ML VIAL IVP PRN (02:15)
[2022-06-17] MEDS ORDERED: ACETAMINOPHEN 325 MG TABLET PO PRN (02:15)
[2022-06-17] MEDS ORDERED: IPRATROPIUM BROMIDE 0.5 MG/2.5 ML NEB SOLUTION NEB PRN (02:15)
[2022-06-17] MEDS: AZITHROMYCIN 500 MG/NS 250 ML IV SCH (02:22)
[2022-06-17] MEDS ORDERED: KETOROLAC TROMETHAMINE 15 MG/ML VIAL IVP PRN (05:30)
[2022-06-17] MEDS ORDERED: ALBUTEROL SULFATE 2.5 MG/0.5 ML NEB SOLUTION NEB ONE (05:30)
[2022-06-17] MEDS ORDERED: ACETAMINOPHEN 325 MG/ISO-OSM 32.5 ML IV ONE (05:30)
[2022-06-17] MEDS: MethylPREDNISolone SOD SUCC 125 MG/2 ML VIAL IVP SCH ×2 (05:45→10:11)
[2022-06-17] MEDS ORDERED: METHADONE PO (07:39)
[2022-06-17] MEDS: DOCUSATE SODIUM 100 MG CAPSULE PO SCH ×2 (08:04→19:28)
[2022-06-17] MEDS ORDERED: MEMA5TAB42 PO (08:07)
[2022-06-17] MEDS ORDERED: GLIP5TAB12 PO (08:07)
[2022-06-17] MEDS ORDERED: ATOR10TA69 PO (08:07)
[2022-06-17] MEDS ORDERED: PIOG45TA4 PO (08:07)
[2022-06-17 10:04] VITALS: BP 122/53
[2022-06-17 12:51] LABS: GLUCOMETER DEV NAME(LOC) 6S.1B; GLUCOSE,POINT OF CARE 177 MG/DL (70-110)
[2022-06-17 17:04] VITALS: BP 146/70
[2022-06-17] MEDS ORDERED: AMLO5TAB66 PO (17:04)
[2022-06-17] MEDS ORDERED: INSU100I40 SQ (17:04)
[2022-06-17 20:18] VITALS: BP 137/73
[2022-06-17] MEDS ORDERED: SODIUM CHLORIDE 0.9% 250 ML IV ONE (22:15)
[2022-06-17] MEDS ORDERED: SODIUM CHLORIDE 0.9% 500 ML IV ONE (22:19)
[2022-06-17] MEDS: CefTRIAXone 1 GM/DEXTROSE 50 ML IV SCH (23:56)
[2022-06-18] MEDS: AZITHROMYCIN 500 MG/NS 250 ML IV SCH (01:32)
[2022-06-18 04:31] VITALS: BP 134/61
[2022-06-18] MEDS: DOCUSATE SODIUM 100 MG CAPSULE PO SCH ×2 (07:20→21:00)
[2022-06-18 08:17] VITALS: BP 137/71
[2022-06-18] MEDS: MethylPREDNISolone SOD SUCC 125 MG/2 ML VIAL IVP SCH (08:23)
[2022-06-18 12:26] LABS: GLUCOMETER DEV NAME(LOC) 6S.1B; GLUCOSE,POINT OF CARE 134 MG/DL (70-110)
[2022-06-18] MEDS: DEXTROSE 5%-0.45% SODIUM CHL 1,000 ML IV SCH (12:42)
[2022-06-18 12:55] LABS: BASOPHILS % (AUTO) 0.4 % (0.0-2.0); EOSINOPHILS % (AUTO) 0.1 % (1.0-6.0); HEMATOCRIT 32.3 % (36-46); LYMPHOCYTES # (AUTO) 0.6 K/uL (1.0-4.8); MEAN CORPUSCULAR HEMOGLOBIN 31.8 pg (26.0-34.0); MEAN CORPUSCULAR VOLUME 93 fL (80-100); MONOCYTES # (AUTO) 0.3 K/uL (0.1-1.0); NEUTROPHILS # (AUTO) 8.7 K/uL (1.8-7.7); PLATELET COUNT (AUTO) 229 K/uL (150-450); RED BLOOD CELL COUNT(AUTO) 3.46 MIL/uL (4.00-5.20); RED CELL DISTRIBUTION WIDTH 14.4 % (11.5-14.5)
[2022-06-18 12:58] LABS: NEUTROPHILS % (AUTO) 90.5 % (40.0-70.0)
[2022-06-18 13:10] LABS: ALANINE AMINOTRANSFERASE 14 U/L (12-78); ALBUMIN 2.5 g/dL (3.4-5.0); ALKALINE PHOSPHATASE 59 U/L (46-116); ANION GAP 7 mmol/L (8-16); ASPARTATE AMINOTRANSFERASE 18 U/L (15-37); BILIRUBIN,TOTAL 0.4 mg/dL (0.1-1.0); CALCIUM, TOTAL 8.9 mg/dL (8.8-10.5); CARBON DIOXIDE 28 mmol/L (22-29); CHLORIDE 90 mmol/L (98-107); GLOMERULAR FILTR. RATE CALC > 60 mL/min (>60); GLUCOSE,RANDOM 139 mg/dL (70-110); POTASSIUM 4.4 mmol/L (3.5-5.1); SODIUM SERUM 125 mmol/L (136-145); TOTAL PROTEIN, SERUM 7.3 g/dL (6.4-8.2); UREA NITROGEN, BLOOD 24 mg/dL (7-18)
[2022-06-18 15:05] VITALS: BP 134/74
[2022-06-18 19:01] LABS: GLUCOMETER DEV NAME(LOC) 6S.1B; GLUCOSE,POINT OF CARE 190 MG/DL (70-110)
[2022-06-18 19:20] VITALS: BP 148/68
[2022-06-18] MEDS: CefTRIAXone 1 GM/DEXTROSE 50 ML IV SCH (23:23)
[2022-06-19 00:56] LABS: GLUCOMETER DEV NAME(LOC) 6S.1B; GLUCOSE,POINT OF CARE 167 MG/DL (70-110)
[2022-06-19] MEDS ORDERED: SODIUM CHLORIDE 0.9% 500 ML IV ONE (02:09)
[2022-06-19] MEDS: AZITHROMYCIN 500 MG/NS 250 ML IV SCH (02:19)
[2022-06-19 05:10] VITALS: BP 168/80
[2022-06-19] MEDS ORDERED: NITROGLYCERIN 2% (1 GM=INCH) OINTMENT PACKET TP ONE ×2 (05:45)
[2022-06-19] MEDS: DEXTROSE 5%-0.45% SODIUM CHL 1,000 ML IV SCH (06:01)
[2022-06-19 07:36] LABS: GLUCOMETER DEV NAME(LOC) 6N.1; GLUCOSE,POINT OF CARE 130 MG/DL (70-110)
[2022-06-19 07:55] VITALS: BP 158/80
[2022-06-19] MEDS: MethylPREDNISolone SOD SUCC 125 MG/2 ML VIAL IVP SCH (08:12)
[2022-06-19] MEDS: DOCUSATE SODIUM 100 MG CAPSULE PO SCH ×2 (08:13→21:55)
[2022-06-19 08:16] LABS: BASOPHILS % (AUTO) 0.3 % (0.0-2.0); EOSINOPHILS % (AUTO) 0 % (1.0-6.0); HEMATOCRIT 35.4 % (36-46); HEMOGLOBIN 12.4 g/dL (12.0-16.0); LYMPHOCYTES # (AUTO) 1.4 K/uL (1.0-4.8); LYMPHOCYTES % (AUTO) 10.8 % (22.0-44.0); MEAN CORPUSCULAR HEMOGLOBIN 32.3 pg (26.0-34.0); MEAN CORPUSCULAR HGB CONC 35.1 G/dL (31.0-37.0); MEAN CORPUSCULAR VOLUME 92 fL (80-100); NEUTROPHILS # (AUTO) 10.3 K/uL (1.8-7.7); NEUTROPHILS % (AUTO) 80.9 % (40.0-70.0); PLATELET COUNT (AUTO) 280 K/uL (150-450); RED BLOOD CELL COUNT(AUTO) 3.84 MIL/uL (4.00-5.20); RED CELL DISTRIBUTION WIDTH 13.8 % (11.5-14.5)
[2022-06-19 08:34] LABS: ALANINE AMINOTRANSFERASE 16 U/L (12-78); ALBUMIN 2.9 g/dL (3.4-5.0); ALKALINE PHOSPHATASE 67 U/L (46-116); ANION GAP 8 mmol/L (8-16); ASPARTATE AMINOTRANSFERASE 19 U/L (15-37); BILIRUBIN,TOTAL 0.4 mg/dL (0.1-1.0); CALCIUM, TOTAL 9.2 mg/dL (8.8-10.5); CARBON DIOXIDE 29 mmol/L (22-29); CHLORIDE 92 mmol/L (98-107); CREATININE 0.69 mg/dL (0.60-1.30); GLOMERULAR FILTR. RATE CALC > 60 mL/min (>60); GLUCOSE,RANDOM 130 mg/dL (70-110); POTASSIUM 3.4 mmol/L (3.5-5.1); SODIUM SERUM 129 mmol/L (136-145); TOTAL PROTEIN, SERUM 8.1 g/dL (6.4-8.2); UREA NITROGEN, BLOOD 19 mg/dL (7-18)
[2022-06-19 13:25] LABS: GLUCOMETER DEV NAME(LOC) 6N.1; GLUCOSE,POINT OF CARE 205 MG/DL (70-110)
[2022-06-19 15:32] VITALS: BP 138/72
[2022-06-19] MEDS ORDERED: POTASSIUM CHLORIDE 20 MEQ ER TABLET PO ONE (15:45)
[2022-06-19] MEDS ORDERED: ALPRAZolam 0.25 MG TABLET PO ONE (16:15)
[2022-06-19 20:25] VITALS: BP 167/86
[2022-06-19] MEDS ORDERED: AmLODIPine BESYLATE 5 MG TABLET PO SCH (21:00)
[2022-06-19] MEDS ORDERED: DEXTROSE 50%-WATER 25 GM/50 ML SYRINGE IVP PRN (21:30)
[2022-06-19] MEDS ORDERED: MELATONIN 3 MG TABLET PO ONE (21:30)
[2022-06-19] MEDS: INSULIN LISPRO 100 UNITS/ML SQ PRN (22:04)
[2022-06-19] MEDS: CefTRIAXone 1 GM/DEXTROSE 50 ML IV SCH (23:16)
[2022-06-19 23:27] VITALS: BP 152/80
[2022-06-20 00:21] LABS: GLUCOMETER DEV NAME(LOC) 6S.1B; GLUCOSE,POINT OF CARE 220 MG/DL (70-110)
[2022-06-20] MEDS ORDERED: HALOPERIDOL LACTATE 5 MG/ML VIAL IM ONE (00:45)
[2022-06-20] MEDS: AZITHROMYCIN 500 MG/NS 250 ML IV SCH (01:02)
[2022-06-20 05:22] VITALS: BP_SYST 153; BP_SYST 167; BP_DIAS 77
[2022-06-20 07:41] VITALS: BP 171/72
[2022-06-20 08:10] LABS: BASOPHILS % (AUTO) 0.2 % (0.0-2.0); EOSINOPHILS % (AUTO) 0.1 % (1.0-6.0); HEMATOCRIT 32.1 % (36-46); HEMOGLOBIN 11.1 g/dL (12.0-16.0); LYMPHOCYTES # (AUTO) 1.4 K/uL (1.0-4.8); LYMPHOCYTES % (AUTO) 10.5 % (22.0-44.0); MEAN CORPUSCULAR HEMOGLOBIN 32.1 pg (26.0-34.0); MEAN CORPUSCULAR HGB CONC 34.5 G/dL (31.0-37.0); MEAN CORPUSCULAR VOLUME 93 fL (80-100); MONOCYTES # (AUTO) 1.1 K/uL (0.1-1.0); MONOCYTES % (AUTO) 8.4 % (2.0-9.0); NEUTROPHILS # (AUTO) 10.7 K/uL (1.8-7.7); NEUTROPHILS % (AUTO) 80.8 % (40.0-70.0); PLATELET COUNT (AUTO) 267 K/uL (150-450); RED BLOOD CELL COUNT(AUTO) 3.45 MIL/uL (4.00-5.20)
[2022-06-20 08:33] LABS: ALANINE AMINOTRANSFERASE 14 U/L (12-78); ALBUMIN 2.7 g/dL (3.4-5.0); ALKALINE PHOSPHATASE 56 U/L (46-116); ANION GAP 6 mmol/L (8-16); ASPARTATE AMINOTRANSFERASE 16 U/L (15-37); BILIRUBIN,TOTAL 0.3 mg/dL (0.1-1.0); CALCIUM, TOTAL 8.8 mg/dL (8.8-10.5); CARBON DIOXIDE 30 mmol/L (22-29); CHLORIDE 97 mmol/L (98-107); CREATININE 0.62 mg/dL (0.60-1.30); GLOMERULAR FILTR. RATE CALC > 60 mL/min (>60); GLUCOSE,RANDOM 128 mg/dL (70-110); POTASSIUM 3.9 mmol/L (3.5-5.1); SODIUM SERUM 133 mmol/L (136-145); TOTAL PROTEIN, SERUM 7.7 g/dL (6.4-8.2); UREA NITROGEN, BLOOD 14 mg/dL (7-18)
[2022-06-20 08:42] LABS: GLUCOMETER DEV NAME(LOC) 6S.1B; GLUCOSE,POINT OF CARE 134 MG/DL (70-110)
[2022-06-20] MEDS: MethylPREDNISolone SOD SUCC 125 MG/2 ML VIAL IVP SCH (09:41)
[2022-06-20] MEDS: DOCUSATE SODIUM 100 MG CAPSULE PO SCH ×2 (09:42→20:38)
[2022-06-20] MEDS: NIFEdipine 30 MG ER TABLET PO SCH (11:21)
[2022-06-20] MEDS: INSULIN LISPRO 100 UNITS/ML SQ PRN ×3 (11:32→20:39)
[2022-06-20 14:21] LABS: GLUCOMETER DEV NAME(LOC) 6N.1; GLUCOSE,POINT OF CARE 169 MG/DL (70-110)
[2022-06-20 15:33] VITALS: BP 145/73
[2022-06-20 19:15] VITALS: BP 139/71
[2022-06-20] MEDS ORDERED: AmLODIPine BESYLATE 5 MG TABLET PO SCH (21:00)
[2022-06-21] MEDS: CefTRIAXone 1 GM/DEXTROSE 50 ML IV SCH (00:06)
[2022-06-21] MEDS: AZITHROMYCIN 500 MG/NS 250 ML IV SCH (01:34)
[2022-06-21 04:15] VITALS: BP 131/67
[2022-06-21] MEDS: INSULIN LISPRO 100 UNITS/ML SQ PRN ×2 (05:42→11:48)
[2022-06-21 07:46] LABS: GLUCOMETER DEV NAME(LOC) 6N.1; GLUCOSE,POINT OF CARE 224 MG/DL (70-110)
[2022-06-21 07:46] LABS: GLUCOMETER DEV NAME(LOC) 6N.1; GLUCOSE,POINT OF CARE 268 MG/DL (70-110)
[2022-06-21 07:47] LABS: BASOPHILS % (AUTO) 0.1 % (0.0-2.0); EOSINOPHILS % (AUTO) 0.7 % (1.0-6.0); HEMOGLOBIN 11.5 g/dL (12.0-16.0); LYMPHOCYTES # (AUTO) 1.9 K/uL (1.0-4.8); LYMPHOCYTES % (AUTO) 17.5 % (22.0-44.0); MEAN CORPUSCULAR HEMOGLOBIN 31.5 pg (26.0-34.0); MEAN CORPUSCULAR HGB CONC 33.8 G/dL (31.0-37.0); MEAN CORPUSCULAR VOLUME 93 fL (80-100); MONOCYTES # (AUTO) 1.2 K/uL (0.1-1.0); NEUTROPHILS # (AUTO) 7.8 K/uL (1.8-7.7); NEUTROPHILS % (AUTO) 70.7 % (40.0-70.0); PLATELET COUNT (AUTO) 283 K/uL (150-450); RED BLOOD CELL COUNT(AUTO) 3.65 MIL/uL (4.00-5.20); RED CELL DISTRIBUTION WIDTH 13.9 % (11.5-14.5)
[2022-06-21 07:47] LABS: GLUCOMETER DEV NAME(LOC) 6S.1B; GLUCOSE,POINT OF CARE 174 MG/DL (70-110)
[2022-06-21 08:04] LABS: ALANINE AMINOTRANSFERASE 12 U/L (12-78); ALBUMIN 2.5 g/dL (3.4-5.0); ALKALINE PHOSPHATASE 51 U/L (46-116); ANION GAP 6 mmol/L (8-16); ASPARTATE AMINOTRANSFERASE 10 U/L (15-37); BILIRUBIN,TOTAL 0.2 mg/dL (0.1-1.0); CALCIUM, TOTAL 8.6 mg/dL (8.8-10.5); CARBON DIOXIDE 30 mmol/L (22-29); CHLORIDE 99 mmol/L (98-107); GLOMERULAR FILTR. RATE CALC > 60 mL/min (>60); GLUCOSE,RANDOM 116 mg/dL (70-110); POTASSIUM 3.5 mmol/L (3.5-5.1); SODIUM SERUM 135 mmol/L (136-145); TOTAL PROTEIN, SERUM 7.2 g/dL (6.4-8.2); UREA NITROGEN, BLOOD 17 mg/dL (7-18)
[2022-06-21 08:17] VITALS: BP 141/76
[2022-06-21] MEDS: MethylPREDNISolone SOD SUCC 125 MG/2 ML VIAL IVP SCH (08:22)
[2022-06-21] MEDS: DOCUSATE SODIUM 100 MG CAPSULE PO SCH (08:22)
[2022-06-21] MEDS: NIFEdipine 30 MG ER TABLET PO SCH (08:22)
[2022-06-21 15:06] VITALS: BP 141/69
[2022-06-21] MEDS ORDERED: AMOX1TAB16 PO (15:15)
[2022-06-21 19:00] LABS: GLUCOMETER DEV NAME(LOC) 6S.1B; GLUCOSE,POINT OF CARE 181 MG/DL (70-110)
== END 2022-06-21 17:45 | disposition hospice, home (50) | DRG 871 ==
LOC: EMS 23:23 → AHU 06-17 02:19 → 6N 06-17 08:40 → 6S 06-19 06:09
PROVIDERS: ADMIT Internal Medicine; ATTEND Hospitalist
DX: A41.9 Sepsis, unspecified organism (principal); J18.9 Pneumonia, unspecified organism; J96.01 Acute respiratory failure with hypoxia; E87.1 Hypo-osmolality and hyponatremia; Z20.822 Contact with and (suspected) exposure to COVID-19; Z66 Do not resuscitate; R41.89 Other symptoms and signs involving cognitive functions and awareness; F03.90 Unspecified dementia, unspecified severity, without behavioral disturbance, psychotic disturbance, mood disturbance, and anxiety; D64.9 Anemia, unspecified; E11.9 Type 2 diabetes mellitus without complications; Z51.5 Encounter for palliative care; Z79.899 Other long term (current) drug therapy; Z79.4 Long term (current) use of insulin
CPT/HCPCS: 71045; 80053; 81001; 81002; 82550; 82962; 83605; 83880; 84484; 85025; 85610; 85730; 87040; 87804; 92526; 92610; 93005; 94640; 94660; 99285; J0131; J0456; J0696; J1630; J1885; J1940; J2930; J7040; J7050; 36415-L1; 36415-TC; J7613